=== PATIENT | female | born 1975 | race Caucasian/White ===

== ENCOUNTER 2022-09-25 08:54 | Day surgery (SDC) | payer BC, MEDICARE ==
[~2022-09-25] VITALS: Ht 172.7 cm; Wt 75.0 kg
--- NOTE | ~2022-09-25 | OR ---
[facility] [address] [place], [place] [address] Draft DATE OF OPERATION: 09/25/2022 SURGEON: Sami Mercer MD LOCATION: [facility]. PREOPERATIVE DIAGNOSIS: Left lingual lesion. POSTOPERATIVE DIAGNOSIS: Left lingual lesion. PROCEDURE: Biopsy of left lingual lesion. ANESTHESIA: General orotracheal; Home [place]. PREOPERATIVE HISTORY: Louisa is a 47-year-old lady with an ulcerated lesion on the left side of her tongue for several weeks. This has been very suspicious for neoplasia. She is taken to the operating room for the above-mentioned procedures. OPERATIVE PROCEDURE AND FINDINGS: After informed consent, the patient was taken to the operating room and placed in the supine position, where general orotracheal anesthesia was induced. The patient and procedure were verified. Headlight exam of the oral cavity showed an ulcerated lesion on the left side of her tongue near the midportion of the lateral edge, measured about 2 cm with slightly heaped up edges, ulcerated in the middle. A 1% lidocaine with epinephrine was injected in a field-type block. Several pieces of specimen were taken with a 15 blade, wedge near the anterior portion including the ulcerated portion in the middle. These specimens were sent to pathology, frozen section. Pathologist showed that it was inflammatory. No cancer. No neoplasia. Bleeding was minimal and stopped with just local pressure. The pharynx was suctioned clear of blood secretions. The patient was then awakened, extubated, and transported to the recovery room in good condition. No complications. BLOOD LOSS: Minimal. PATIENT NAME: LOUISA LYLES OPERATIVE REPORT DATE OF : 77 REPORT #: [id number] PHYSICIAN: SAMI MERCER MD PCP: OTHER PCP REPORT IS CONFIDENTIAL AND NOT TO BE RELEASED WITHOUT AUTHORIZATION [address] [address] Draft SPECIMEN: To pathology. DRAINS: No drains. Sami Mercer MD GC/SHELLIEL /[id number] Copies: ~ PATIENT NAME: LOUISA LYLES OPERATIVE REPORT DATE OF : 77 REPORT #: [id number] PHYSICIAN: SAMI MERCER MD PCP: OTHER PCP REPORT IS CONFIDENTIAL AND NOT TO BE RELEASED WITHOUT AUTHORIZATION
[~2022-09-25 08:54] MED LIST: CYMBALTA20 MG PO; LIDOCAINE HCL100 ML MT; MELOXICAM15 MG PO; METHOCARBAMOL750 MG PO; NEURONTIN100 MG PO; OMEPRAZOLE20 MG PO; TRAZODONE HCL100 MG PO
--- NOTE | 2022-09-25 12:30 | NUR ---
09/25/22 1230 [address] 1158 PT ARRIVED IN PACU WIDE AWAKE WITH NO C/O'S. ASKING MANY QUESTIONS ABOUT SURGERY. DR AT BEDSIDE ANSWERING ALL QUESTIONS. 1215 SITTING UP IN BED SIPPING ON WATER. C/O L SIDE OF TONGUE PAIN 5/10. DECLINED PAIN MEDICATION AT THIS TIME. 1220 TO DS. REPORT GIVEN TO RN.
--- NOTE | 2022-09-25 12:40 | NUR ---
MORE ICED WATER GIVEN. YOGURT AND SOUP ORDERED FROM DIETARY. CALL LIGHT WITHIN REACH.
--- NOTE | 2022-09-25 14:09 | NUR ---
1315: PATIENT EATING YOGURT AND SOUP. NO NEEDS AT THIS TIME. CALL LIGHT WITHIN REACH. 1330: VS CHECKED. DISCHARGE INSTRUCTIONS GIVEN TO PATIENT. STAND BY ASSIST WHILE PATIENT GOOT OOB AND WALKED TO BATHROOM. VOID WITHOUT DIFFICULTY. GAIT STEADY BACK TO ROOM. 1345: IV DC'D WNL. TIP INTACT. DRESSING APPLIED. PATIENT GETTING DRESSED. 1352: PATIENT DISCHARGED TO HOME WITH VIA WHEELCHAIR.
--- NOTE | 2022-09-26 14:37 | NUR ---
PT CALLED TODAY TO SEE HOW SHE WAS FEELING AFTER PROCEDURE YESTERDAY. PT STATES, "I FEEL LIKE CRAP TO BE HONEST." PT CONTINUES TO STATE FEELING "ABSENT IS THE BEST I CAN DESCRIBE IT... HAVING MAJOR BRAIN FOG," DIZZINESS, SORE THROAT AND TONGUE, TIRED AND "VERY HUNGRY." PT DENIES ANY MEANS OF CHECKING BP AND IS ADVISED TO CONTACT DR. LLOYD IF SYMPTOMS DO NO RESOLVE, OR TO SEEK EMERGENCY MEDICAL ATTENTION IF WORSEN. PT STATES SHE PLANS TO REST FOR REMAINDER OF DAY IN HOPES OF FEELING BETTER.
--- NOTE | 2022-09-27 16:10 | PATH ---
[facility] [address] [place], [place] [address] Signed SPECIMEN(S): A LEFT LINGUAL LESION SPECIMEN SOURCE: A. LEFT LINGUAL LESION CLINICAL HISTORY: Left lingual lesion excision. FROZEN SECTION DIAGNOSIS: A. Left inguinal lesion: Reactive and inflammatory changes. No evidence of malignancy on sections examined. ([place], 09/25/2022, 11:45, a.m.) Frozen section diagnoses called to Dr. Mercer at 11:45. Facility where the frozen section was performed: [place], [place]. JS (under the direct supervision of a pathologist) The Gross Description was prepared using a voice recognition system. The report was reviewed for accuracy; however, sound-alike word errors, addition and/or deletions may occur. If there is any question about this report, please contact Client Services. FINAL PATHOLOGIC DIAGNOSIS: Left lingual lesion: - Benign squamous epithelium and ulcerated soft tissue with abundant acute inflammation (abscess) and granulation tissue. - CK AE1/3 immunostain is negative for occult carcinoma. COMMENT: As part of [employer]' Quality Improvement Program, this case was reviewed by another member of our pathology staff. JVR:MAX:raul:C2NR MICROSCOPIC EXAMINATION: Histologic sections of all submitted blocks are examined by light microscopy. These findings, together with the gross examination, support the pathologic diagnosis. A CK AE1/3 immunostain is performed with appropriate controls on block (A1) and is negative for occult carcinoma. JVR:raul GROSS DESCRIPTION: The specimen, labeled and designated "Freeman, left lingual lesion," is PATIENT NAME: JOSEPH FREEMAN PATHOLOGY DATE OF : 77 REPORT #: [id number] PHYSICIAN: JOCELIN LOVE PCP: OTHER PCP REPORT IS CONFIDENTIAL AND NOT TO BE RELEASED WITHOUT AUTHORIZATION [facility] [address] [place], [place] [address] Signed received fresh for intraprocedural consult and consists of a pink-george, soft tissue fragment that measures after frozen section, 0.7 x 0.7 cm. Entirely submitted. Cassette Summary: (A1) Frozen section ADDITIONAL NOTES: Immunohistochemical and/or in situ hybridization studies were performed on this case with the appropriate positive controls that react as expected. This test was developed and its performance characteristics determined by [employer]. It has not been cleared or approved by the U.S. Food and Drug Administration. The FDA has determined that such clearance or approval is not necessary. This test is used for clinical purposes. It should not be regarded as investigational or for research. [employer] is certified under the Clinical Laboratory Improvement Amendments of 1988 (CLIA) as qualified to perform high complexity clinical laboratory testing. This assay has not been validated for specimens that have been decalcified. PERFORMING LABORATORY: The technical component was performed by [employer], [address] [place] [id number] (CLIA# [id number]). Professional frozen section interpretation was performed by [facility], [address] [place] [address] (CLIA#: [id number]). Professional interpretation was performed by [facility], [address] [place] [id number] (CLIA#: [id number]). Diagnostician: Moi Farrell MD Pathologist Electronically Signed 09/27/2022 Copies: ~ PATIENT NAME: JOSEPH FREEMAN PATHOLOGY DATE OF : 77 REPORT #: [id number] PHYSICIAN: JOCELIN PATHOLOGY PCP: OTHER PCP REPORT IS CONFIDENTIAL AND NOT TO BE RELEASED WITHOUT AUTHORIZATION
== END 2022-09-25 13:52 | disposition home or self-care (01) ==
LOC: OPS 08:54 → DS 08:54 → OPS 10:30 → DS 10:30 → OPS 13:52
PROVIDERS: ATTEND Otolaryngology
PROC: 0CB70ZX Excision of Tongue, Open Approach, Diagnostic (ICD-10-PCS; principal; 2022-09-25 10:30)
DX: K14.0 Glossitis (principal); J44.9 Chronic obstructive pulmonary disease, unspecified; K21.9 Gastro-esophageal reflux disease without esophagitis; Z88.5 Allergy status to narcotic agent; Z87.891 Personal history of nicotine dependence
CPT/HCPCS: J0330; J1100; J2001; J2405; J2704; J3010; J7121

== ENCOUNTER 2022-12-16 16:47 | Emergency (ER) | payer BC, OTHER ==
[~2022-12-16] VITALS: Ht 172.7 cm; Wt 74.8 kg
--- OUTSIDE RECORDS SUMMARY | 2022-12-16 16:53 | XMS ---
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 ERaysa VISIT COUNT (12 MO.) 1 EDUARDO Jauregui TOTAL 1 NOTE: Visits indicate total known visits. ED/UCC VISIT TRACKING (12 MO.) 12/16/2022 16:[address] [facility] [place] TYPE: Emergency COMPLAINT: - HEAD PAIN INPATIENT VISIT TRACKING (12 MO.) No inpatient visits to display in this time frame [email or web address]
[2022-12-16 19:25] VITALS: BP 114/82
== END 2022-12-16 19:38 | disposition home or self-care (01) ==
LOC: ED 16:47
DX: F10.129 Alcohol abuse with intoxication, unspecified (principal); Z88.5 Allergy status to narcotic agent; Z79.899 Other long term (current) drug therapy
CPT/HCPCS: 36415; 70450; 80053; 81003; 84443; 84703; 85025; G0480; J3411; J7030